=== PATIENT | male | born 1950 | race Hispanic/Latino ===

== ENCOUNTER 2016-07-11 13:25 | Day surgery (SDC) | payer OTHER ==
[~2016-07-11] VITALS: Ht 175.3 cm; Wt 95.0 kg
[~2016-07-11 13:25] MED LIST: 0.9% Sodium Chloride 1,000 ML IV SCH; KEN25CR EXT; Sodium Biphos-Phos 133 mL Enema RECTAL PRN; Sodium Chloride LOK Flush 10 mL Syringe IV PRN; fentaNYL-PF 50 mCg/mL 2 mL Inj IVPUSH PRN
[2016-07-11] MEDS ORDERED: DOXY20TA5 PO (13:49)
[2016-07-11 13:50] VITALS: BP 136/88; PULSE 74; RESP 16; O2SAT 96
[2016-07-11 15:00] VITALS: BP 119/73; PULSE 58; RESP 16; O2SAT 92
[2016-07-11 15:10] VITALS: BP 109/76; PULSE 70; RESP 16; O2SAT 96
[2016-07-11 15:18] VITALS: BP 112/83; PULSE 67; RESP 16; O2SAT 96
--- NOTE | 2016-07-11 15:28 | ENDO ---
[address] [address] ENDOSCOPY PROCEDURE PATIENT: JES CHAVEZ : 1950 MR#: [id number] ADMIT: 07/11/2016 JOB ID: [id number] DATE OF SERVICE: 07/11/2016 PREPROCEDURE DIAGNOSIS: Personal history of colon polyps. POSTPROCEDURE DIAGNOSES: 1. Extensive left-sided diverticulosis. 2. Descending colon polyps x2. 3. Hepatic flexure polyp. 4. Transverse colon polyps x2. 5. Descending colon polyps x2. PROCEDURE: Colonoscopy with biopsy. ENDOSCOPIST: Jb Harris MD. MEDICATIONS: 1. Versed 6 mg. 2. Fentanyl 125 mcg. INDICATIONS: The patient is a 66-year-old man who last underwent colonoscopy in 2010. 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 He had no new changes in his bowel habits, no unplanned weight loss, no abdominal pain, no blood in the stool. After discussion of risks and benefits, he agreed to proceed with colonoscopy. FINDINGS: There were very large-mouthed diverticula, quite extensive, throughout the sigmoid and left-sided colon. A total of seven polyps were found and resected. Polyps were removed from the ascending colon, hepatic flexure, transverse colon, and descending colon. DESCRIPTION OF THE PROCEDURE: Procedural sedation was achieved. The patient was connected to hemodynamic monitoring, pulse oximetry, capnography. After digital rectal exam, the PCF-H190L colonoscope was inserted and passed under visualization until the ileocecal valve and appendiceal orifice were visualized and photo documented. The scope was then withdrawn and carefully retroflexed in the rectum. Two polyps were removed from the ascending colon with cold forceps. Both were approximately 5 mm in diameter. Those were sent for permanent pathology. There was a polyp at the hepatic flexure which was more vascular but probably 4-5 mm, somewhat more flat. This was resected with a hot snare and sent for permanent pathology. In the transverse colon, there were two separate polyps both measuring 2-3 mm. One was resected with a cold forceps, and the other with a hot snare, and those were sent for permanent pathology. In the descending colon, there was one fairly broad, flat, polypoid lesion. The area of flat mucosal change measured approximately 1 cm. This was resected piecemeal with several applications of the hot snare. At the end of polypectomy from that site, there was no visible residual mucosal change. There was an adjacent 2 mm polyp, which was removed with a cold forceps. The remainder of the colonoscopy was normal. The scope was withdrawn and the procedure terminated. He tolerated the entire procedure well. RECOMMENDATIONS: A letter will be mailed with biopsy results when available. His next colonoscopy should be in three years.
--- NOTE | 2016-07-13 13:41 | PATH ---
SURGICAL PATHOLOGY Attending Physician:Tamiko Russ CASE STATUS: Signed Out PATIENT NAME: JES CHAVEZ PID: [id number] : 1950 DATE COLLECTED:07/11/2016 00:00 SPECIMEN: 1: Colon, Biopsy 2: Colon, Biopsy 3: Colon, Biopsy 4: Colon, Biopsy CLINICAL HISTORY: 1). ASCENDING COLON POLYP X2 2). HEPATIC FLEXURE POLYP X1 3). TRANSVERSE COLON POLYP X2 4). DESCENDING COLON POLYP X2 FINAL DIAGNOSIS: 1.ASCENDING COLON POLYPS: TUBULAR ADENOMA INVOLVING ALL BIOPSY FRAGMENTS. 2.HEPATIC FLEXURE POLYP: TUBULAR ADENOMA. 3.TRANSVERSE COLON POLYPS: TUBULAR ADENOMA INVOLVING BOTH BIOPSY FRAGMENTS. 4.DESCENDING COLON POLYPS: TUBULAR ADENOMA INVOLVING SINGLE BIOPSY FRAGMENT. HYPERPLASTIC POLYP INVOLVING SINGLE BIOPSY FRAGMENT. ICD10 CODE D12.0 GROSS DESCRIPTION: The specimen is received in four formalin filled containers labeled with the patient's name. 1). The specimen is sublabeled "ascending colon polyp" and consists of are 4 fragments of fabian, soft tissue which aggregate to 0.4 x 0.4 x 0.3 CM. The specimen is entirely submitted in cassette 1A. 2). The specimen is sublabeled "hepatic flexure polyp" and consists of a 0.3 x 0.3 x 0.3 CM portion of tissue which is entirely submitted in cassette 2A. 3). The specimen is sublabeled "transverse colon polyp" and consists of 2 portions of tissue which aggregate to 0.3 x 0.3 x 0.2 CM. The specimen is entirely submitted in cassettes 3A. 4). The specimen is sublabeled "descending colon polyp" and consists of 2 portions of tissue which aggregate to 0.4 x 0.3 x 0.2 CM. The specimen is entirely submitted in cassette 4A. 07/12/2016 [facility] MICRO DESCRIPTION: See diagnosis. ICD-9 CODES: CPT CODES: 1: 50595 2: 23447 3: 06435 4: 31107 Electronically Signed Out Janak Contreras MD [facility] [address] [facility], [place] [address] Technical component performed at [facility], [address], [place], [address]
== END 2016-07-11 23:59 | disposition home or self-care (01) ==
LOC: END 13:25
PROVIDERS: ATTEND Student in an Organized Health Care Education/Training Program
DX: Z12.11 Encounter for screening for malignant neoplasm of colon (principal); Z86.010 Personal history of colon polyps; K57.30 Diverticulosis of large intestine without perforation or abscess without bleeding; D12.2 Benign neoplasm of ascending colon; D12.3 Benign neoplasm of transverse colon; D12.4 Benign neoplasm of descending colon
CPT/HCPCS: 45380; 45385; 99153; G0500; J7030